=== PATIENT | female | born 1995 | race Two or more races ===

== ENCOUNTER 2017-08-10 23:03 | Emergency (ER) | payer MEDICAID ==
[~2017-08-10] VITALS: Ht 154.9 cm; Wt 59.0 kg
[2017-08-10 23:14] VITALS: BP 102/57
== END 2017-08-11 01:30 | disposition left against medical advice (07) ==
LOC: ER 23:06
DX: R51 Headache (principal); R42 Dizziness and giddiness; Z53.21 Procedure and treatment not carried out due to patient leaving prior to being seen by health care provider
CPT/HCPCS: 70450